=== PATIENT | male | born 1950 | race Caucasian/White ===

== ENCOUNTER 2018-11-08 17:14 | Emergency (ER) | payer BC, MEDICARE ==
[2018-11-08 17:23] VITALS: RESP 18
[2018-11-08] MEDS ORDERED: HYDROcodone/APAP 10-325MG 1 EACH TAB PO ONE (17:52)
--- NOTE | 2018-11-08 17:52 | ED ---
General Adult HPI - General Chief complaint: Extremity Injury, Upper Stated complaint: left shoulder injury Time Seen by Provider: 11/08/18 17:28 Source: patient Mode of arrival: ambulatory Limitations: no limitations - History of Present Illness Initial comments: 68 yoM presenting with left shoulder and neck pain after falling from a chain attached to a tree. Patient states he landed on his left shoulder. Since then he has been having limited range of motion as well as pain. He denies head injury, LOC, or blood thinner use. He admits to left sided paraspinal cervical pain. Denies any numbness or weakness of his extremities. The patient did not take anything for his pain prior to arrival. - Related Data Home Medications Medication Instructions Recorded Confirmed Calcium Carbonate [Tums] 500 mg PO Q4H 11/08/18 11/08/18 Ergocalciferol [Vitamin D2 50,000 unit PO FR 11/08/18 11/08/18 (DRISDOL)] Fenofibrate [Lofibra] 160 mg PO DAILY 11/08/18 11/08/18 HYDROcodone/APAP 10-325MG [[place] 1 tab PO Q12HR PRN 11/08/18 11/08/18 10-325] Meclizine [Antivert] 12.5 mg PO DAILY PRN 11/08/18 11/08/18 Metoprolol Tartrate [Lopressor] 100 mg PO BID 11/08/18 11/08/18 amLODIPine [Norvasc] 10 mg PO DAILY 11/08/18 11/08/18 Allergies Allergy/AdvReac Type Severity Reaction Status Date / Time No Known Allergies Allergy Verified 11/08/18 18:08 Review of Systems ROS Statement: Those systems with pertinent positive or pertinent negative responses have been documented in the HPI. Review of Systems Constitutional: Denies fever, chills Eyes: Denies change in vision, Denies pain Ears, nose, mouth, throat: Denies headaches, Denies sore throat Cardiovascular: Denies chest pain. Denies palpitations Respiratory: Denies shortness of breath, Denies cough Gastrointestinal: Denies abdominal pain. Denies nausea, vomiting, diarrhea. Genitourinary: Denies hematuria, Denies infections Musculoskeletal: Positive pain, Denies swelling Integumentary: Denies rash Neurological: Denies headache, focal weakness, focal numbness Psychiatric: Denies anxiety, Denies depression Hematologic/Lymphatic: Denies easy bleeding or bruising ROS Other: All systems not noted in ROS Statement are negative. Past Medical History Past Medical History: Hyperlipidemia, Hypertension Additional Past Medical History / Comment(s): vertigo, back pain History of Any Multi-Drug Resistant Organisms: None Reported Past Surgical History: No Surgical Hx Reported Past Psychological History: No Psychological Hx Reported Smoking Status: Current every day smoker Past Alcohol Use History: Occasional Past Drug Use History: None Reported General Exam - General Exam Comments Initial Comments: General: Awake, alert, No acute Distress HENT: Normocephalic. Atraumatic Eyes: PERRL. EOMI. No scleral icterus. No injected conjunctiva Neck: Full ROM Chest/Lungs: Clear to auscultation bilaterally. No wheezing, rhonchi, or rales Cardiac: Regular rate, rhythm. No murmurs or rubs. 2+ radial pulse on left Abdomen/GI: Soft, nontender, nondistended. No rebound, guarding, or rigidity. Musculoskeletal: . Left-sided cervical paraspinal hypertonicity without midline tenderness. No midline thoracic or lumbar tenderness. Left anterior shoulder pain. Limited ROM in all planes of movement of left shoulder. No obvious deformity. C5-T1 sensation intact bilaterally. Skin: Warm, dry, intact Neurologic: A/Ox3, no weakness, no sensory deficit, no abnormal gait, no coordination deficit Limitations: no limitations Course Vital Signs 11/08/18 11/08/18 17:19 20:14 Temperature 98.1 F 97.8 F Pulse Rate 52 L 56 L Respiratory 18 18 Rate Blood Pressure 113/71 126/84 O2 Sat by Pulse 95 95 Oximetry Medical Decision Making - Medical Decision Making 68 yoM presenting with left shoulder pain. The patient had no head injury, LOC, and is not on blood thinners. His imaging was negative for acute process. The patient continued to have left shoulder pain. He was offered CT to rule out miss ed fracture but declined. He understood the importance of calling the orthopedic surgeon tomorrow for follow up. He was neurovascularly intact. The patient was placed in a shoulder immobilizer. He was told to take the shoulder out of the immobilizer and ranging it so he doesn't develop frozen shoulder. He was given an rx for a short course of pain medications. He has a follow up appointment with his doctor on [place]. No further emergent workup indicated. The patient was given return to ED instructions. They were instructed to follow up with their primary care provider. Stable for discharge at this time. Disposition Clinical Impression: Shoulder pain, left Disposition: HOME SELF-CARE Instructions (If sedation given, give patient instructions): Rotator Cuff Injury (ED), Osteoarthritis (ED) Is patient prescribed a controlled substance at d/c from ED?: No Referrals: Brandi Falcon MD [Primary Care Provider] - 1-2 days Glen Jose PAC [PHYSICIAN SERVICING MANAGER] - 1-2 days Jorge Alberto Chaves DO [Medical Doctor] - 1-2 days Cesar Coy MD [STAFF PHYSICIAN] - 1-2 days
--- NOTE | 2018-11-08 18:34 | XR ---
EXAMINATION TYPE: XR shoulder complete LT DATE OF EXAM: 11/08/2018 COMPARISON: NONE HISTORY: Shoulder pain TECHNIQUE: 3 views FINDINGS: There is some spurring at the glenohumeral joint. There is spurring at the AC joint. I see no fracture nor dislocation. IMPRESSION: Mild osteoarthritis. No fracture.
--- NOTE | 2018-11-08 18:35 | XR ---
EXAMINATION TYPE: XR humerus LT DATE OF EXAM: 11/08/2018 COMPARISON: NONE HISTORY: Pain. Fall. TECHNIQUE: 4 views FINDINGS: Elbow joint and shoulder joint appear intact. I see no fracture nor dislocation. Glenohumer al joint is anatomic. Scapula appears intact. 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 IMPRESSION: Olecranon process spurring. No fracture seen.
--- NOTE | 2018-11-08 18:36 | CT ---
EXAMINATION TYPE: CT cervical spine wo con DATE OF EXAM: 11/08/2018 COMPARISON: None HISTORY: Shoulder pain CT DLP: 452.7 mGycm Automated exposure control for dose reduction was used. TECHNIQUE: CT scan of the cervical spine is obtained without contrast, axial images are obtained, sa gittal and coronal reformatted images are also reviewed. FINDINGS: Cervical vertebra have normal alignment. Posterior elements are intact. There is hypertroph ic facet arthropathy throughout the cervical spine. There is C6-7 disc space narrowing. There is spur ring of the endplates. The skull base is intact. I see no focal bone destruction. IMPRESSION: Spondylotic changes in the lower cervical spine. No fracture.
[2018-11-08 20:15] VITALS: BP 126/84; PULSE 56; TEMP 97.8
== END 2018-11-08 20:15 | disposition home or self-care (01) ==
LOC: EC 17:14
DX: M25.512 Pain in left shoulder (principal); M54.2 Cervicalgia; E78.5 Hyperlipidemia, unspecified; I10 Essential (primary) hypertension; F17.200 Nicotine dependence, unspecified, uncomplicated; Z53.29 Procedure and treatment not carried out because of patient's decision for other reasons; Z79.899 Other long term (current) drug therapy
CPT/HCPCS: 73030; 73060; 72125; 99284; L1830; L3670

== ENCOUNTER 2019-12-09 07:50 | Day surgery (SDC) | payer BC, MEDICARE ==
[2019-12-07 15:16] VITALS: BMI 27.1
[~2019-12-09 07:50] MED LIST: LACTATED RINGERS 1,000 ML IV SCH
[2019-12-09 08:07] VITALS: TEMP 98.4
[2019-12-09] MEDS ORDERED: LIDOCAINE 1% (10MG/ML) FOR IV START INTRADERMA ONE (08:17)
[2019-12-09] MEDS ORDERED: PROPOFOL 10 MG/ML 20 ML VIAL IV ONE (08:57)
[2019-12-09 09:38] VITALS: RESP 16
--- NOTE | 2019-12-09 09:41 | P.PCN ---
Date of Procedure: 12/09/19 Description of Procedure: BRIEF HISTORY: Patient is a 69-year-old male presenting for outpatient colonoscopy report a history of colon polyps. Last colonoscopy approximately 5 years ago with polypectomy. He denies any family history of colon cancer, change in bowel habits or blood per rectum. PROCEDURE PERFORMED: Colonoscopy. PREOPERATIVE DIAGNOSIS: History of colon polyps, last colonoscopy 5 years ago. ESTIMATED BLOOD LOSS: Minimal. IV sedation per Anesthesia. PROCEDURE: After informed consent was obtained, the patient, was brought into the endoscopy unit. IV sedation was administered by Anesthesia under continuous monitoring. Digital rectal examination was normal. Initially the Olympus CF-190 flexible video colonoscope was then inserted in the rectum, gradually advanced into the cecum without any difficulty. Careful examination was performed as the scope was gradually being withdrawn. Ileocecal valve and the appendiceal orifice were visualized and appeared normal. Prep was fair with large amounts of semisolid stool adherent to the willoughby of the colon with copious lavage attempted however complete visualization of the mucosa could not be achieved. Mucosa of the cecum, ascending colon, transverse colon, descending colon, sigmoid colon, and rectum which was able to be visualized and appeared normal, however complete visualization was limited by the fair prep. Moderate sigmoid diverticulosis with numerous small mouth diverticula in the sigmoid colon.. Retroflexion was performed in the rectum and no lesions were seen, moderate internal hemorrhoids. The patient tolerated the procedure well. IMPRESSION: Moderate sigmoid diverticulosis. Moderate internal hemorrhoids. Fair prep. RECOMMENDATIONS: Findings of this examination were discussed with the patient okay to resume diet. Okay to resume medications. Would recommend repeat colonoscopy in 3 years for fair prep.
[2019-12-09 09:53] VITALS: BP 130/84; PULSE 58
== END 2019-12-09 10:40 | disposition home or self-care (01) ==
LOC: ORWHC2ENDO 07:50
PROVIDERS: ATTEND Internal Medicine
DX: Z12.11 Encounter for screening for malignant neoplasm of colon (principal); K57.30 Diverticulosis of large intestine without perforation or abscess without bleeding; K64.8 Other hemorrhoids; Z86.010 Personal history of colon polyps; K21.9 Gastro-esophageal reflux disease without esophagitis; Z98.890 Other specified postprocedural states; I10 Essential (primary) hypertension; E78.5 Hyperlipidemia, unspecified; F17.210 Nicotine dependence, cigarettes, uncomplicated; Z79.891 Long term (current) use of opiate analgesic; Z79.899 Other long term (current) drug therapy
CPT/HCPCS: J2704; G0105; 45378

== ENCOUNTER 2022-07-30 07:03 | Day surgery (SDC) | payer BC, MEDICARE ==
[2022-07-24 12:23] VITALS: BMI 24.9
[2022-07-29 14:28] LABS: Basophils # (A) 0.09 X 10*3/uL (0.00-0.10); Basophils % (A) 0.8 %; Eosinophils # (A) 0.43 X 10*3/uL (0.04-0.35); Eosinophils % (A) 3.6 %; HCT 47.3 % (39.6-50.0); HGB 15.3 g/dL (13.0-17.0); Immature Grans, Automated 1.4 %; Lymphocytes # (A) 2.44 X 10*3/uL (0.90-5.00); Lymphocytes % (A) 20.6 %; MCH 28.5 pg (27.0-32.0); MCHC 32.3 g/dL (32.0-37.0); MCV 88.2 fL (80.0-97.0); Mean Platelet Volume 10.6 fL (9.5-12.2); Monocytes # (A) 0.86 X 10*3/uL (0.20-1.00); Monocytes % (A) 7.3 %; NRBC Per 100 WBC 0 /100 WBCS (0.0-0.0); Neutrophils # (A) 7.87 X 10*3/uL (1.80-7.70); Neutrophils % (A) 66.3 %; Platelet Count 308 X 10*3/uL (140-440); RBC 5.36 X 10*6/uL (4.40-5.60); RDW 13.8 % (11.5-14.5); WBC 11.85 X 10*3/uL (4.50-10.00)
[~2022-07-30 07:03] MED LIST changes: +ACETAMINOPHEN TAB 500 MG TAB PO PRN; +DEXAMETHASONE SOD PHOSPHATE 4 MG/ML 1 ML VIAL IV ONE; +HEPARIN SODIUM,PORCINE/PF 5,000 UNIT/0.5 ML SYRINGE SQ PRN; +HYDROmorphone 0.5 MG/0.5 ML SYRINGE IVP PRN; +LIDOCAINE 1% (10MG/ML) FOR IV START INTRADERMA PRN; +ONDANSETRON 4 MG/2 ML VIAL IVP ONE
[2022-07-30] MEDS ORDERED: MIDAZOLAM 2 MG/2 ML VIAL IVP ONE (08:24)
[2022-07-30] MEDS ORDERED: fentaNYL (PF) 50 MCG/1 ML VIAL IVP ONE (08:24)
[2022-07-30] MEDS ORDERED: BUPIVACAIN-EPI 0.25%-1:200,000 30 ML VIAL SQ ONE ×2 (09:15→09:43)
[2022-07-30] MEDS ORDERED: SUCCINYLCHOLINE CHLORIDE 200 MG/10 ML VIAL IV ONE (09:23)
[2022-07-30] MEDS ORDERED: MIDAZOLAM 2 MG/2 ML VIAL ONE (09:23)
[2022-07-30] MEDS ORDERED: NEOSTIGMINE 1 MG/ML 10 ML VIAL ONE (09:23)
[2022-07-30] MEDS ORDERED: LIDOCAINE 2% INJ 20 MG/ML (2 ML VIAL) ONE (09:23)
[2022-07-30] MEDS ORDERED: PROPOFOL 10 MG/ML 20 ML VIAL IV ONE (09:23)
[2022-07-30] MEDS ORDERED: GLYCOPYRROLATE 0.2 MG/ML 2 ML VIAL ONE (09:23)
[2022-07-30] MEDS ORDERED: ROPIVACAINE 5 MG/ML 30 ML VIAL ONE (09:23)
[2022-07-30] MEDS ORDERED: fentaNYL (PF) 50 MCG/ML 2 ML AMP ONE (09:23)
[2022-07-30] MEDS ORDERED: KETAMINE 10 MG/ML 20 ML VIAL ONE (09:23)
[2022-07-30] MEDS ORDERED: KETOROLAC 15 MG/ML 1 ML VIAL ONE (09:23)
[2022-07-30] MEDS ORDERED: SODIUM CHLORIDE 0.9% (PF) 10 ML VIAL ONE (09:23)
[2022-07-30] MEDS ORDERED: ROCURONIUM 10 MG/ML (5 ML VIAL) IV ONE (09:23)
--- NOTE | 2022-07-30 10:12 | P.ANPRN ---
Procedure Note - Anesthesia - Nerve Block Performed Bilateral Erector Spinae Single Time Out Performed: Yes ([id number]) Date of Procedure: 07/30/22 Procedure Start Time: :24 Procedure Stop Time: :30 Location of Patient: PreOp Indication: Acute Post-Operative Pain, Requested by Surgeon Specifically requested for management of pain by : aJ Fenton Sedation Type: Sedate with meaningful contact maintained Preparation: Sterile Prep Position: Prone Catheter: None Needle Types: Pajunk Needle Gauge: 21 Ultrasound used to visualize needle placement: Yes Ultrasound used to observe medication spread: Yes Injectate: 0.5% Ropivacaine (see comment for volume) (15cc+ 10cc nacl pf each side) Blood Aspirated: No Pain Paresthesia on Injection Noted: No Resistance on Injection: Normal Image Stored and Saved: Yes Events: Uneventful and Well Tolerated
[2022-07-30 10:15] VITALS: TEMP 97
--- NOTE | 2022-07-30 10:26 | P.OP ---
Date of Procedure: 07/30/22 Preoperative Diagnosis: Right inguinal hernia Postoperative Diagnosis: Right inguinal hernia Procedure(s) Performed: Right inguinal hernia Transversus abdominis plane block Anesthesia: MAEVE Surgeon: Ja Fenton Pathology: none sent Condition: stable Disposition: PACU Description of Procedure: The patient's placed on the operating table in the supine position. The patient received general anesthesia. The patient's abdomen was prepped and draped in usual sterile fashion. The skin was anesthetized 1% local Xylocaine at the incision sites. Using an 11 blade a skin incision was made at the umbilicus. The fascia was grasped with a Hillary and then the peritoneal cavity was entered with the Veress needle. Position of the Veress needle was confirmed with a positive drop test. After adequate insufflation a 5 mm trocar was placed into the peritoneal cavity. The Laparoscope was placed the peritoneal cavity. And a robotic 8 mm trocar was placed in the right lateral position and then another 8 mm robotic trochars placed in the left lateral position. The original 5 mm trocar was exchanged for a 12 mm trocar. Next a four-quadrant transversus abdominis plane block was performed with 1% local Xylocaine. The patient was placed in reverse Trendelenburg and then the patient was docked to the robot. Next the peritoneum over top of the hernia was incised and then using blunt and sharp dissection and electrocautery the hernia sac was dissected free from the floor of the inguinal canal. The hernia sac was completely reduced into the peritoneal cavity. And then using the [employer] mesh the hernia was repaired. The peritoneum was then sutured with 20V lock suture. The patient was then undocked the robot. The needle was withdrawn from the peritoneal cavity. The umbilical trocar site was closed with 0 Ethibond suture. The skin was closed interrupted 3-0 Monocryl suture. Dermabond dressing was applied. Patient was sent to recovery in stable condition.
[2022-07-30 12:23] VITALS: BP 129/78; PULSE 46; RESP 18
== END 2022-07-30 13:19 | disposition home or self-care (01) ==
LOC: OR 07:03
PROVIDERS: ATTEND Surgery
DX: K40.90 Unilateral inguinal hernia, without obstruction or gangrene, not specified as recurrent (principal); G89.29 Other chronic pain; I10 Essential (primary) hypertension; E78.5 Hyperlipidemia, unspecified; K21.9 Gastro-esophageal reflux disease without esophagitis; F17.210 Nicotine dependence, cigarettes, uncomplicated; Z98.890 Other specified postprocedural states; Z79.899 Other long term (current) drug therapy
CPT/HCPCS: 64461; 49650; C1781; J2250; J0330; J1100; J2710; J0690; J2405; J3010 ×2; J2795; J1885; J2704; J1644; J2001; 85025; 86850; 86900; 86901; 93005